=== PATIENT | female | born 1960 | race Caucasian/White ===

== ENCOUNTER 2021-07-03 17:32 | Emergency (ER) | payer OTHER ==
[2021-07-03] MEDS ORDERED: HYDROmorphone 1 MG/ML CARPUJECT IM STA (18:36)
[2021-07-03] MEDS ORDERED: HYDROmorphone 2 MG TABLET PO STA ×2 (19:19→21:01)
--- NOTE | 2021-07-03 19:19 | XRAY Report ---
PROCEDURE: Forearm RT INDICATIONS: fall, arm pain TECHNIQUE: 2 views of the forearm were acquired. COMPARISON: None. FINDINGS: Bones: Mildly comminuted distal right radial fracture with intra-articular extension. Mild volar angu lation of the distal fracture fragment. Severe degenerative changes of the first carpometacarpal join t. Degenerative changes of the triscaphe joint. There is diffuse osteopenia. No suspicious bony lesio ns. Soft tissues: No suspicious soft tissue calcifications or masses. IMPRESSION: Mildly comminuted intra-articular fracture of the distal right radius. Degenerative changes of the right wrist. Diffuse osteopenia. Reviewed by: Yoni Roque MD on 07/03/2021 7:18 PM PDT Approved by: Yoni Roque MD on 07/03/2021 7:18 PM PDT Station ID: [id number]
--- NOTE | 2021-07-03 19:22 | ED Physician Documentation ---
PD HPI UPPER EXT INJURY - Stated complaint Stated Complaint: RT WRIST INJ - Chief complaint Chief Complaint: Trauma Ext - History obtained from History obtained from: Patient - History of Present Illness Location: Right, Wrist Type of injury: Fall Timing - onset: How many hours ago (1) Timing - duration: Hours (1) Pain level max: 10 Pain level now: 10 Improved by: Rest Worsened by: Moving - Additonal information Additional information: Patient is a 60-year-old female who presents to the emergency department with a right wrist injury after a ground-level fall today. She is visiting from [facility]. She states she has had multiple orthopedic injuries in the past and the only pain medicine that she can take is Dilaudid. This occurred about an hour prior to arrival. Worse with movement, better with rest. Rates the pain is a 10 out of 10. Patient is right-handed Review of Systems Constitutional: denies: Fever, Chills GI: denies: Vomiting, Diarrhea Musculoskeletal: denies: Neck pain, Back pain Neurologic: denies: Headache PD PAST MEDICAL HISTORY - Past Medical History Past Medical History: Yes - Past Surgical History Past Surgical History: Yes - Present Medications Home Medications: Ambulatory Orders Medication Instructions Recorded Confirmed HYDROmorphone [Dilaudid] 2 mg PO Q6H PRN #20 tablet 07/03/21 - Allergies Allergies/Adverse Reactions: Allergies Allergy/AdvReac Type Severity Reaction Status Date / Time levofloxacin [From Levaquin] Allergy Emesis Verified 07/03/21 18:03 - Living Situation Living Arrangement: reports: At home PD ED PE NORMAL - Vitals Vital signs reviewed: Yes - General General: Alert and oriented X 3, No acute distress, Other (Wearing sunglasses) - HEENT HEENT: Atraumatic, PERRL, Moist mucous membranes - Neck Neck: Supple, no meningeal sign - Cardiac Cardiac: RRR - Respiratory Respiratory: No respiratory distress, Clear bilaterally - Derm Derm: Warm and dry - Extremities Extremities: Other (swelling, R wrist. TTP over the distal wrist. ) - Neuro Neuro: Alert and oriented X 3 Results - Vitals Vitals: Vital Signs - 24 hr 07/03/21 07/03/21 07/03/21 18:03 18:26 20:06 Temperature 36.5 C 37 C Heart Rate 88 90 89 Respiratory 16 24 18 Rate Blood Pressure 124/74 129/68 118/60 O2 Saturation 98 100 97 07/03/21 21:21 Temperature Heart Rate 76 Respiratory 18 Rate Blood Pressure 113/75 O2 Saturation 95 Oxygen O2 Source Room air - Rads (name of study) Right forearm x-ray Radiology: Final report received, EMP read contemporaneously, See rad report (Impacted, comminuted, intra-articular distal radius fracture) Right wrist x-ray Radiology: Final report received, EMP read contemporaneously, See rad report (Impacted, comminuted, intra-articular distal radius fracture) Procedures - Splint (location) R arm Splint applied by: Physician, Tech Type of splint: Fiberglass, Short arm, Sugar tong Other: Patient tolerated well, No complications, Neurovascular intact, Good alignment, Sling provided PD MEDICAL DECISION MAKING - ED course Complexity details: reviewed results, re-evaluated patient, considered differential, d/w patient ED course: 60-year-old female with a comminuted intra-articular distal radius fracture. Will likely need surgical intervention. Neurovascularly intact. Pain well controlled. Placed in a splint and sling. We will have her follow-up with orthopedics and likely a hand surgeon when she returns home next week to [facility]. I am prescribing a short course of short-acting opioid pain medication for this patient. I have reviewed the patients [employer] and no concerning findings were noted. I have discussed that the opioids are for short term therapy only, and will not be refilled from the ED. patient counseled regarding signs and symptoms for which I believe and urgent re-evaluation would be necessary. Patient with good understanding of and agreement to plan and is comfortable going home at this time This document was made in part using voice recognition software. While efforts are made to proofread this document, sound alike and grammatical errors may occur. Departure - Departure Disposition: 01 Home, Self Care Clinical Impression: Distal radius fracture Qualifiers: Encounter type: initial encounter Fracture type: closed Fracture morphology: unspecified fracture morphology Laterality: right Qualified Code(s): S52.501A - Unspecified fracture of the lower end of right radius, initial encounter for closed fracture Condition: Good Instructions: ED Fx Upper Ext Follow-Up: your,doctor in 1 week [Other] Prescriptions: HYDROmorphone [Dilaudid] 2 mg PO Q6H PRN #20 tablet PRN Reason: arm pain Comments: Please follow-up with a hand surgeon when you return to [place]. This will likely require surgery to repair your wrist. Stay in the splint until released by an orthopedist or hand surgeon. Your prescription was sent to [facility] in [place]. I am prescribing a short course of narcotic pain medication for you. These are potentially dangerous and addictive medications that should be used carefully. These medications may constipate you. Take an [id number] stool softener (docusate) twice daily with plenty of water while taking these medications. If you go 24 hours without a bowel movement, take gjfc-tul-[id number] miralax, per package instructions. Do not drink or drive while taking these medications. If you received narcotic or sedating medications while in the emergency department, do not drive for 24 hours. Store this medication in a safe, secure place and out of reach of children. It is a violation of federal law to give or sell this medication to another person or to use in a manner other than prescribed. The ED will not refill narcotic prescriptions, including prescriptions lost or stolen. To dispose of unwanted medications: 1. [facility] [address] [facility] in [place] has a medication drop box. They accept prescription medications (in pill form) Saturday through Saturday 9:00 a.m. to 5:00 p.m. 2. The [facility] [employer] accepts prescription medications (in pill form only) for disposal year round. Call for more information. 3. Contact the [facility] for the next [facility] sponsored prescription drug collection event. , [phone], or [phone]; IMPRESSION: Mildly comminuted intra-articular fracture of the distal right radius. Degenerative changes of the right wrist. Diffuse osteopenia. Discharge Date/Time: 07/03/21 21:18
[2021-07-03 21:22] VITALS: BP 113/75
--- NOTE | 2021-07-04 11:51 | XRAY Report ---
PROCEDURE: Wrist 3 View RT INDICATIONS: WRIST PAIN TECHNIQUE: 3 views of the wrist were acquired. COMPARISON: Ultrasound forearm 07/03/2021 FINDINGS: Bones: There is a comminuted intra-articular fracture of the distal radius with mild displacement. Soft tissues: No suspicious soft tissue calcifications. IMPRESSION: Comminuted intra-articular distal radial fracture with mild displacement. Reviewed by: Griselda Keen MD on 07/04/2021 11:49 AM PDT Approved by: Griselda Keen MD on 07/04/2021 11:49 AM PDT Station ID: [id number]
== END 2021-07-03 21:18 | disposition home or self-care (01) ==
LOC: ED 17:32
DX: S52.571A Other intraarticular fracture of lower end of right radius, initial encounter for closed fracture (principal); W18.30XA Fall on same level, unspecified, initial encounter; Y93.69 Activity, other involving other sports and athletics played as a team or group
CPT/HCPCS: 29125; 73090; 73110; 96372; 99283; 99284; A9270; J1170